=== PATIENT | female | born 1945 | race Caucasian/White ===

== ENCOUNTER 2023-04-11 06:50 | Day surgery (SDC) | payer OTHER ==
[2023-04-07 11:28] LABS: BASOPHILS % (AUTO) 0.9 % (0.0-5.0); LYMPHOCYTES % (AUTO) 23.8 % (21.0-51.0); MEAN CORPUSCULAR HEMOGLOBIN 27.3 pg (27.0-33.0); MEAN CORPUSCULAR HGB CONC 31.6 g/dL (32.0-36.0); MEAN CORPUSCULAR VOLUME 86.4 fL (79-99); MONOCYTES % (AUTO) 8.8 % (3.0-13.0); PLATELET COUNT (AUTO) 263 K/uL (130-400); RED BLOOD CELL COUNT(AUTO) 4.28 MIL/uL (4.00-5.50); RED CELL DISTRIBUTION WIDTH 13.3 % (11.0-15.5); WHITE BLOOD COUNT (AUTO) 8.6 K/uL (4.8-10.8)
[2023-04-07 11:35] LABS: CREATININE 1.1 mg/dL (0.5-1.5); POTASSIUM 4.4 mmol/L (3.5-5.1)
[2023-04-07 11:46] LABS: INR 0.93 (0.85-1.15); PROTHROMBIN TIME 9.8 SEC (9.6-11.6)
[2023-04-07 11:47] LABS: PARTIAL THROMBOPLASTIN TIME 26.5 SEC (26.3-35.5)
[2023-04-07 11:50] LABS: APPEARANCE,URINE CLOUDY (CLEAR); BILIRUBIN,URINE NEGATIVE (NEGATIVE); COLOR,URINE LIGHT-YELLOW (YELLOW); GLUCOSE, URINE (UA) NEGATIVE (NEGATIVE); KETONES,URINE NEGATIVE (NEGATIVE); LEUKOCYTE ESTERASE ,URINE 75 Leu/uL (NEGATIVE); NITRATE,URINE NEGATIVE (NEGATIVE); OCCULT BLOOD,URINE NEGATIVE (NEGATIVE); PROTEIN,URINE NEGATIVE (NEGATIVE); UROBILINOGEN,URINE 0.2 mg/dL (0.2-1.0)
[2023-04-07 11:53] LABS: B-TYPE NATRIURETIC PEPTIDE 137 pg/mL (0-100)
[2023-04-07 11:54] VITALS: BP 144/69
[2023-04-07 12:00] LABS: BACTERIA,URINE FEW /HPF (None Seen); MUCUS,URINE RARE LPF (None Seen); RBC,URINE 0-1 /HPF (0-1); SQUAMOUS EPITHELIAL CELL,UR FEW /HPF (0-2)
[~2023-04-11] VITALS: Ht 162.6 cm; Wt 84.0 kg
[2023-04-11] VITALS (10 sets, daily range): BP systolic 131–161; BP diastolic 43–93
[~2023-04-11 06:50] MED LIST: AMLO-258 PO; ATOR40TA71 PO; CLOP-31 PO; HYDR-3420 PO; HYDR25TA PO; ISOS60TA77 PO; LEVO25CA4 PO; LISI10TA24 PO; LORA10TA7 PO; METOPROLOL SUCCINATE PO; NITR0.4T50 SL; PHARMACY COMMUNICATION MISC SCH; RAMI10CA69 PO
[2023-04-11] MEDS ORDERED: 0.9%NACL 1000ML 1,000 ML IV ONE (07:18)
[2023-04-11] MEDS ORDERED: LIDOCAINE HCL 400MG/20ML VIAL ONE (08:21)
[2023-04-11] MEDS ORDERED: FENTANYL CITRATE PF 50 MCG/1 ML 2ML VIAL ONE (08:21)
[2023-04-11] MEDS ORDERED: MIDAZOLAM HCL 1 MG/ML 2ML VIAL ONE (08:22)
[2023-04-11] MEDS ORDERED: IOHEXOL 350 MG/ML 100ML INFUS..BTL IV ONE (08:22)
[2023-04-11] MEDS ORDERED: IOHEXOL-350 50ML VIAL IV ONE ×2 (08:22→09:25)
[2023-04-11] MEDS ORDERED: BIVALIRUDIN 250 MG/VIAL IV ONE (08:22)
[2023-04-11] MEDS ORDERED: CEFTRIAXONE 1G VIAL ONE (08:29)
[2023-04-11] MEDS ORDERED: 0.9%NACL 1000ML 1,000 ML IV SCH (10:00)
== END 2023-04-11 15:07 | disposition home or self-care (01) ==
LOC: DAH 06:50
PROVIDERS: ATTEND Internal Medicine Cardiovascular Disease
DX: I25.118 Atherosclerotic heart disease of native coronary artery with other forms of angina pectoris (principal); I70.1 Atherosclerosis of renal artery; I73.9 Peripheral vascular disease, unspecified; E78.00 Pure hypercholesterolemia, unspecified; I10 Essential (primary) hypertension; E78.5 Hyperlipidemia, unspecified; E03.9 Hypothyroidism, unspecified; E66.9 Obesity, unspecified; Z79.01 Long term (current) use of anticoagulants; Z79.899 Other long term (current) drug therapy; Z98.84 Bariatric surgery status; Z98.51 Tubal ligation status; Z98.890 Other specified postprocedural states; Z68.30 Body mass index [BMI] 30.0-30.9, adult
CPT/HCPCS: 80048; 83880; 85025; 85610; 85730; 87077; 87088; 87186; 81001; 36415; 71045; 93005; 93458; 36252; C1894 ×3; C1760; Q9965; J3010; J3490; J7030; J0696; J2250; J1644; Q9967 ×3; A4215; A4222; A4221; A4663; A4216; A4606; A4223 ×3; 99156; 99157; J0583

== ENCOUNTER → 2024-02-08 | Outpatient (CLI) | payer OTHER ==
[~2024-02-08] MED LIST changes: +AEC81 PO; -AMLO-258 PO; -CLOP-31 PO; +FURO20TA6 PO; -HYDR-3420 PO; -HYDR25TA PO; -ISOS60TA77 PO; -LISI10TA24 PO; +LISI20TA24 PO; +METO-391 PO; +METO25 PO; -METOPROLOL SUCCINATE PO; -NITR0.4T50 SL; -PHARMACY COMMUNICATION MISC SCH; -RAMI10CA69 PO
== END | disposition home or self-care (01) ==
LOC: LAB 15:33
PROVIDERS: ATTEND Internal Medicine Cardiovascular Disease
DX: I25.10 Atherosclerotic heart disease of native coronary artery without angina pectoris (principal); R06.00 Dyspnea, unspecified
CPT/HCPCS: 36415; 83880

== ENCOUNTER → 2024-11-04 | Outpatient (CLI) | payer OTHER ==
[2024-11-04] MEDS: REGADENOSON 0.4 MG/5 ML PF SYG IVP ONE (15:18)
--- NOTE | 2024-11-07 07:52 | HMCSR ---
APPROVED REPORT Height: 5 ft 5in Weight: 186 lbs TEST INDICATIONS CAD The imaging protocol used to acquire images was Rest Tc-99m/stress Tc-99m 1 day Consent: The procedure was explained and understood by the patient. Informerd consent was witnessed Mable Jeter RN First, low dose rest was performed then high dose stress. RESTING DATA: The resting ekg shows: NSR, TWI inferior and anterolateral Rest SPECT myocardial perfusion imaging was performed in supine position 87 minutes following the int ravenous injection of 13 mCi of Tc-99 Sestamibi. Time of rest injection: 09:00: Date: 11/04/2024 Time of rest imagin:27: Date: 11/04/2024 PHARMACOLOGIC STRESS: Pharmacologic stress test was performed by injecting regadenoson 0.4 mg IV push followed by the intra venous injection of 31.7 mCi of Tc-99 Sestamibi. Time of stress injection: 10:58: Date: 11/04/2024 Time of stress imagin:22: Date: 11/04/2024 Heart Rate at time of stress injection: 63 bpm. Gated Stress SPECT was performed 83 minutes after stress injection. The images were gated to evaluate regional wall motion and calculate left ventricular ejection fracti on. STRESS DETAILS Reason for Termination: Infusion complete Stress Symptoms: Cough, Throat discomfort Max HR Achieved: 63 bpm % of APMHR Achieved: 71 Max Blood Pressure: 167/58 mmHg Stress ECG: NSR, TWI inferior and anterolateral Study quality was good. Lung uptake was Normal. Artifact: No artifact IMPRESSION Normal pharmacologic nuclear stress test. Conclusion Normal perfusion. LVEF >75%.
== END | disposition home or self-care (01) ==
LOC: SHCH 08:38
PROVIDERS: ATTEND Internal Medicine Cardiovascular Disease
DX: I25.10 Atherosclerotic heart disease of native coronary artery without angina pectoris (principal); R06.09 Other forms of dyspnea
CPT/HCPCS: 78452; 93017; J2785; A9500 ×2